=== PATIENT | male | born 1940 | race Caucasian/White ===

== ENCOUNTER 2017-04-26 12:20 | Outpatient (CLI) ==
[2014-11-04 10:34] VITALS: BMI 23.6
--- NOTE | 2017-04-26 13:08 | DI ---
EXAM: Views of the left femur HISTORY: Fall TECHNIQUE: AP lateral views of the left femur were obtained. FINDINGS: No acute fractures are seen. There is anatomic alignment. The femoral head is seen in n ormal position. The femoral neck appears intact. IMPRESSION: No acute fracture dislocation seen within the left femur.
--- NOTE | 2017-04-26 13:12 | DI ---
EXAM: Left knee four views HISTORY: Fall, left upper leg pain COMPARISON: None FINDINGS: No fracture or dislocation. Small tricompartmental osteophytes. The medial, lateral, and patellofemoral compartments are normal in height. No joint effusion. Atherosclerotic vascular calc ification. IMPERSSION: 1. No fracture or dislocation. 2. Mild tricompartmental osteoarthritis.
== END 2017-04-26 12:21 | disposition home or self-care (01) ==
LOC: RAD 12:20
PROVIDERS: ATTEND Internal Medicine
DX: M79.605 Pain in left leg (principal)

== ENCOUNTER 2022-05-06 10:18 | Observation (INO) ==
[2022-05-06] MEDS ORDERED: ZOFRAN 4 MG/2 ML IVP ONE (10:33)
--- NOTE | 2022-05-06 10:38 | ED.PDOC ---
General <CLINT VIDALES MD - Last Filed: 05/06/22 18:05> ED Provider: Dr. CLINT VIDALES MD Chief Complaint: Nausea/Vomiting Stated Complaint: mild off and on abdominal cramps today w/ body aches, no injury, no fever, no cough, no emesis, hx covid vaccine and htn, no dm or mi Time Seen by Provider: 05/06/22 10:19 Mode of Arrival: Wheelchair Information Source: Patient Primary Care Provider: MANFRED DERAS Sepsis Protocol: For patient's 13 years and over: Temp is 96.8 and below OR 101 and greater Pulse >90 BPM Resp >20/minute Acutely Altered Mental Status Are patient's symptoms suggestive of a new infection, such as: -Pneumonia -Skin, Soft Tissue -Endocarditis -UTI -Bone, Joint Infection -Implantable Device -Acute Abdominal Infection -Wound Infection -Meningitis -Blood Stream Catheter Infection -Unknown <POOL ZAZUETA MD - Last Filed: 05/07/22 08:57> Nursing and Triage Documentation Reviewed and Agree: Yes Does patient meet sepsis criteria?: No System Inflammatory Response Syndrome: Not Applicable Review of Systems <CLINT VIDALES MD - Last Filed: 05/06/22 18:05> Review Of Systems Constitutional: Reports Malaise; Denies Fever Eyes: Denies Vision change Ears, Nose, Mouth, Throat: Denies Throat pain Respiratory: Denies Cough or Short of air Cardiac: Denies Chest pain GI: Reports Abdominal pain and Nausea; Denies Vomiting : Denies Dysuria Musculoskeletal: Denies Neck pain Skin: Denies Rash Neurological: Denies Cognitive dysfunction Endocrine: Reports Other <POOL ZAZUETA MD - Last Filed: 05/07/22 08:57> Review Of Systems All Other Systems: Reviewed and Negative PFSH <CLINT VIDALES MD - Last Filed: 05/06/22 18:05> Medical History (Updated 05/07/22 @ 15:05 by MARTINE MÉNDEZ, ELADIO) Arthritis Depression Elevated cholesterol Gastroesophageal reflux disease Hyperlipidemia Hypertension Pain managed using patient-controlled analgesia ([employer]NICIAN) Family History Mother No problems noted. Other Stroke Social History (Updated 05/07/22 @ 14:22 by MARTINE MÉNDEZ, RN) Smokeless tobacco user: chewing tobacco Substance use type: does not use Surgical History back surgery History of ear, nose, and throat (ENT) surgery History of musculoskeletal system surgery Physical Exam <CLINT VIDALES MD - Last Filed: 05/06/22 18:05> Physical Exam Appearance: Reports Ill-appearing Ill-appearing: Mild Pain Distress: None Eyes: Reports ISABELLA, EOMI and Conjunctiva clear ENT: Reports Oropharynx normal Neck: Supple Respiratory: Reports Airway patent, Breath sounds clear and Breath sounds equal Cardiovascular: Reports RRR GI/: Reports Soft and Tender (no rebound) Musculoskeletal: Reports ROM intact Skin: Reports Warm and Dry Neurological: Reports Alert and Oriented Psychiatric: Reports Affect appropriate <POOL ZAZUETA MD - Last Filed: 05/07/22 08:57> Case Discussed Physician Notified: Dr. Silveira @ [facility], accepted but Lana gutierrez stated no be Time of Notification: 23:00 Physician Notified: Dr Deras Time of Notification: 08:50 (will come evaluate patient and decide if he can admit ) Endorsed To/Discussed With: Vj Time of Discussion: 08:57 <POOL ZAZUETA MD - Last Filed: 05/07/22 08:57> Critical Care Note Total Critical Care Time (mins): 30 Comments: multiple hospitals called with no beds available. Course <CLINT VIDALES MD - Last Filed: 05/06/22 18:05> Course Hematology/Chemistry: 05/08/22 05:35 05/08/22 05:35 Orders, Labs, Meds: Lab Review 05/06/22 05/06/22 05/06/22 10:33 10:33 10:33 WBC 8.09 RBC 5.07 Hgb 14.8 Hct 43.6 MCV 86.0 MCH 29.2 MCHC 33.9 RDW Coeff of Elias 13.2 Plt Count 167 Immature Gran % (Auto) 0.2 Neut % (Auto) 90.3 H Lymph % (Auto) 2.5 L [place] % (Auto) 6.6 Eos % (Auto) 0.0 Baso % (Auto) 0.4 Neut # (Auto) 7.3 H Lymph # (Auto) 0.2 L [place] # (Auto) 0.5 Eos # (Auto) 0.0 Baso # (Auto) 0.0 Immature Gran # (Auto) 0.0 Puncture Site Base Excess O2 Saturation ABG pH ABG pCO2 ABG pO2 ABG HCO3 ABG Total CO2 [place] Test Hemoglobin Oxyhemoglobin Carboxyhemoglobin Total Hemoglobin FiO2 % Sodium 136.4 Potassium 3.71 Chloride 102.1 Carbon Dioxide 24.6 Anion Gap 13.41 BUN 10.3 Creatinine 0.67 Estimated GFR (MDRD) 113.00 BUN/Creatinine Ratio 15.37 Glucose 147.8 H Lactic Acid 0.95 Calcium 8.81 Total Bilirubin 2.61 H AST 158.2 H ALT 124.5 H Alkaline Phosphatase 295.4 H Troponin I < 0.012 Total Protein 7.93 Albumin 4.39 Globulin 3.54 Albumin/Globulin Ratio 1.24 Lipase 7910.6 H Urine Color Urine Clarity Urine pH Ur Specific [place] Urine Protein Urine Glucose (UA) Urine Ketones Urine Blood Urine Nitrite Urine Bilirubin Urine Urobilinogen Ur Leukocyte Esterase Urine Microscopic RBC Urine Microscopic WBC Ur Squamous Epith Cells SARS CoV-2 RNA Rapid SHAMIKA 05/06/22 05/06/22 05/06/22 10:40 11:22 19:23 WBC RBC Hgb Hct MCV MCH MCHC RDW Coeff of Elias Plt Count Immature Gran % (Auto) Neut % (Auto) Lymph % (Auto) [place] % (Auto) Eos % (Auto) Baso % (Auto) Neut # (Auto) Lymph # (Auto) [place] # (Auto) Eos # (Auto) Baso # (Auto) Immature Gran # (Auto) Puncture Site R rad Base Excess 2.3 O2 Saturation 91.2 L ABG pH 7.44 ABG pCO2 39.0 ABG pO2 59.0 L* ABG HCO3 26.5 ABG Total CO2 27.7 H [place] Test Y Hemoglobin 1.1 Oxyhemoglobin 89.6 L Carboxyhemoglobin 1.6 H Total Hemoglobin 14.6 FiO2 % 21.0 Sodium Potassium Chloride Carbon Dioxide Anion Gap BUN Creatinine Estimated GFR (MDRD) BUN/Creatinine Ratio Glucose Lactic Acid Calcium Total Bilirubin AST ALT Alkaline Phosphatase Troponin I Total Protein Albumin Globulin Albumin/Globulin Ratio Lipase Urine Color Yellow Urine Clarity Clear Urine pH 7.0 Ur Specific [place] 1.015 Urine Protein Negative Urine Glucose (UA) Negative Urine Ketones 2+ H Urine Blood Trace-intact H Urine Nitrite Negative Urine Bilirubin Negative Urine Urobilinogen 0.2 Ur Leukocyte Esterase Negative Urine Microscopic RBC 2-5 Urine Microscopic WBC 0-2 Ur Squamous Epith Cells 0-2 SARS CoV-2 RNA Rapid SHAMIKA Positive H 05/06/22 05/06/22 05/07/22 20:19 20:19 06:59 WBC 13.19 H D 13.13 H RBC 4.72 4.64 L Hgb 14.0 13.7 L Hct 41.7 L 40.7 L MCV 88.3 87.7 MCH 29.7 29.5 MCHC 33.6 33.7 RDW Coeff of Elias 13.4 13.7 Plt Count 154 149 Immature Gran % (Auto) 0.4 0.5 Neut % (Auto) 93.1 H 86.8 H Lymph % (Auto) 2.2 L 4.2 L [place] % (Auto) 4.1 8.4 Eos % (Auto) 0.1 0.0 Baso % (Auto) 0.1 0.1 Neut # (Auto) 12.3 H 11.4 H Lymph # (Auto) 0.3 L 0.6 [place] # (Auto) 0.5 1.1 Eos # (Auto) 0.0 0.0 Baso # (Auto) 0.0 0.0 Immature Gran # (Auto) 0.1 0.1 Puncture Site Base Excess O2 Saturation ABG pH ABG pCO2 ABG pO2 ABG HCO3 ABG Total CO2 [place] Test Hemoglobin Oxyhemoglobin Carboxyhemoglobin Total Hemoglobin FiO2 % Sodium 139.4 Potassium 3.88 Chloride 103.3 Carbon Dioxide 26.4 Anion Gap 13.58 BUN 10.0 Creatinine 0.71 Estimated GFR (MDRD) 106.00 BUN/Creatinine Ratio 14.08 Glucose 192.7 H Lactic Acid Calcium 8.16 L Total Bilirubin 2.72 H AST 107.1 H D ALT 99.0 H Alkaline Phosphatase 233.1 H D Troponin I Total Protein 6.95 Albumin 3.83 Globulin 3.12 Albumin/Globulin Ratio 1.22 Lipase 5408.1 H Urine Color Urine Clarity Urine pH Ur Specific [place] Urine Protein Urine Glucose (UA) Urine Ketones Urine Blood Urine Nitrite Urine Bilirubin Urine Urobilinogen Ur Leukocyte Esterase Urine Microscopic RBC Urine Microscopic WBC Ur Squamous Epith Cells SARS CoV-2 RNA Rapid SHAMIKA 05/07/22 05/07/22 06:59 09:16 WBC RBC Hgb Hct MCV MCH MCHC RDW Coeff of Elias Plt Count Immature Gran % (Auto) Neut % (Auto) Lymph % (Auto) [place] % (Auto) Eos % (Auto) Baso % (Auto) Neut # (Auto) Lymph # (Auto) [place] # (Auto) Eos # (Auto) Baso # (Auto) Immature Gran # (Auto) Puncture Site R rad Base Excess 2.7 O2 Saturation 92.6 L ABG pH 7.41 ABG pCO2 43.0 ABG pO2 65.0 L ABG HCO3 27.3 ABG Total CO2 28.6 H [place] Test Y Hemoglobin 0.7 Oxyhemoglobin 91.2 L Carboxyhemoglobin 1.6 H Total Hemoglobin 12.6 FiO2 % 21.0 Sodium 140.6 Potassium 3.55 Chloride 104.1 Carbon Dioxide 27.4 Anion Gap 12.65 BUN 13.5 Creatinine 0.69 Estimated GFR (MDRD) 110.00 BUN/Creatinine Ratio 19.56 Glucose 117.4 H D Lactic Acid Calcium 7.98 L Total Bilirubin 1.17 D AST 84.9 H ALT 87.4 H Alkaline Phosphatase 215.6 H Troponin I Total Protein 6.97 Albumin 3.81 Globulin 3.16 Albumin/Globulin Ratio 1.20 Lipase 3465.8 H Urine Color Urine Clarity Urine pH Ur Specific [place] Urine Protein Urine Glucose (UA) Urine Ketones Urine Blood Urine Nitrite Urine Bilirubin Urine Urobilinogen Ur Leukocyte Esterase Urine Microscopic RBC Urine Microscopic WBC Ur Squamous Epith Cells SARS CoV-2 RNA Rapid SHAMIKA Orders Category Date Time Status PLACE PATIENT OBSERVATION .TO SCU (MONITORED BED) ADMISSION 05/07/22 12:34 Active ABG DRAW REQUEST Stat CARDIO 05/06/22 10:33 Completed ABG DRAW REQUEST Stat CARDIO 05/07/22 09:15 Completed EKG-(ED ONLY) Stat CARDIO 05/06/22 10:33 Completed METERED DOSE INHALATION Routine CARDIO 05/06/22 11:36 Completed NPO REMINDER: IMAGING ONCE CARE 05/07/22 07:02 Completed NPO REMINDER: IMAGING ONCE CARE 05/07/22 09:14 Completed NPO REMINDER: IMAGING ONCE CARE 05/07/22 09:24 Completed TELEMETRY MONITORING TELE CARE 05/07/22 12:35 Active OXYGEN [ED APPLY O2] .ONCE EMERGENCY 05/06/22 11:36 Active ABG COOX Stat LAB 05/06/22 11:22 Completed ABG COOX Stat LAB 05/07/22 09:16 Completed CBC W/ AUTO DIFF Stat LAB 05/06/22 10:33 Completed CBC W/ AUTO DIFF Stat LAB 05/06/22 20:19 Completed CBC W/ AUTO DIFF Stat LAB 05/07/22 06:59 Completed CMP [COMPREHENSIVE METABOLIC PANEL] Stat LAB 05/06/22 10:33 Completed CMP [COMPREHENSIVE METABOLIC PANEL] Stat LAB 05/06/22 20:19 Completed COMPREHENSIVE METABOLIC PANEL Stat LAB 05/07/22 06:59 Completed LACTIC ACID Stat LAB 05/06/22 10:33 Completed LIPASE Stat LAB 05/06/22 10:33 Completed LIPASE Stat LAB 05/06/22 20:19 Completed LIPASE Stat LAB 05/07/22 06:59 Completed SARS COV-2 RNA RAPID SHAMIKA Stat LAB 05/06/22 10:40 Completed TROPONIN I Stat LAB 05/06/22 10:33 Completed URINALYSIS C & S IF INDICATED Stat LAB 05/06/22 19:23 Completed Albuterol Inhaler(with Spacer) [Ventolin Hfa (Per Puff- MEDS 05/06/22 11:36 Discontinued with Spacer)] 2 puff IH ONCE ONE Methylprednisolone Sod Succ/Pf [Solu-Medrol 125 mg] MEDS 05/06/22 11:36 Discontinued 125 mg IVP ONCE STA Morphine Sulfate [Morphine 4 mg/ml Syringe] MEDS 05/06/22 19:24 Discontinued 4 mg IVP ONCE ONE Morphine Sulfate [Morphine 4 mg/ml Syringe] MEDS 05/07/22 02:43 Discontinued 4 mg IVP ONCE ONE Morphine Sulfate [Morphine 4 mg/ml Syringe] MEDS 05/06/22 22:34 Discontinued 4 mg IVP ONCE STA Nicotine 14 mg [Nicoderm 14 mg] MEDS 05/06/22 19:38 Discontinued 1 patch TD ONCE ONE Ondansetron HCl/Pf [Zofran 4 mg/2 ml] MEDS 05/06/22 10:33 Discontinued 4 mg IVP ONCE ONE Ondansetron HCl/Pf [Zofran 4 mg/2 ml] MEDS 05/06/22 19:24 Discontinued 4 mg IVP ONCE STA Pantoprazole Sodium [Protonix IV] MEDS 05/07/22 08:16 Discontinued 40 mg IVP ONCE ONE Piperacillin Sodium/Tazobactam [Zosyn 3.375 gm] 3.375 MEDS 05/06/22 20:45 Discontinued gm 0.9 % Sodium Chloride [Sodium Chloride 100Ml] 100 ml IV ONCE Piperacillin Sodium/Tazobactam [Zosyn 3.375 gm] 3.375 MEDS 05/07/22 02:43 Discontinued gm 0.9 % Sodium Chloride [Sodium Chloride 100Ml] 100 ml IV ONCE Ringers Lactated Solution [Lactated Ringers] 1,000 ml MEDS 05/07/22 07:52 Discontinued IV 250 mls/hr Ringers Lactated Solution [Lactated Ringers] 1,000 ml MEDS 05/07/22 07:53 Discontinued IV BOLUS Ropinirole HCl [Requip] MEDS 05/07/22 08:15 Discontinued 1 mg PO ONCE ONE Sodium Chloride 0.9% [Sodium Chloride] 1,000 ml MEDS 05/06/22 15:50 Discontinued IV BOLUS Sodium Chloride 0.9% [Sodium Chloride] 1,000 ml MEDS 05/06/22 19:23 Discontinued IV BOLUS CHEST, 1V AP ONLY Stat RADS 05/06/22 10:[address] ABDOMEN/PELVIS W CONTRAST Stat RADS 05/07/22 09:[address] ABDOMEN/PELVIS WO CONTRAST Stat RADS 05/06/22 10:33 Completed ULTRASOUND ABDOMEN, RT. UPPER QUAD [U/S ABDOMEN RT RADS 05/07/22 07:02 Completed UPPER QUAD] Stat Medications Generic Name Dose Route Start Last Admin Trade Name Freq PRN Reason Stop Dose Admin Amlodipine Besylate 5 mg 05/08/22 09:00 Amlodipine Besylate 5 Mg Tablet PO DAILY JAIME Aspirin 81 mg 05/08/22 08:30 Aspirin 81 Mg Tablet. PO DAILYWM JAIME Clonidine 0.1 mg 05/07/22 14:54 05/07/22 15:44 Clonidine Hcl 0.1 Mg Tablet PO 0.1 mg Q4H PRN Administration SYSTOLIC BP > 160 Enoxaparin Sodium 40 mg 05/07/22 13:30 05/07/22 14:26 Enoxaparin Sodium 40 Mg/0.4 Ml Syr SUBCUT 40 mg DAILY JAIME Administration Sodium Chloride 1,000 mls @ 75 mls/hr 05/07/22 13:00 05/08/22 04:41 Sodium Chloride IV 75 mls/hr .[id number] JAIME Administration Piperacillin Sod/Tazobactam 50 mls @ 75 mls/hr 05/07/22 18:00 05/08/22 05:43 Sod 3.375 gm/ Sodium Chloride IV 05/10/22 17:59 75 mls/hr Q6HR JAIME Administration Morphine Sulfate 15 mg 05/07/22 15:00 05/07/22 21:32 Morphine Sulfate 15 Mg Tablet PO 15 mg TID JAIME Administration Olmesartan 20 mg 05/08/22 09:00 Olmesartan Medoxomil 20 Mg Tablet PO DAILY JAIME Ondansetron HCl 4 mg 05/07/22 12:59 Ondansetron Hcl/Pf 4 Mg/2 Ml Sdv IVP Q6H PRN Nausea / Vomiting Pravastatin Sodium 20 mg 05/08/22 09:00 Pravastatin Sodium 20 Mg Tablet PO DAILY JAIME Ropinirole HCl 1 mg 05/07/22 21:00 05/07/22 21:32 Ropinirole Hcl 1 Mg Tablet PO 1 mg BEDTIME JAIME Administration Discontinued Medications Generic Name Dose Route Start Last Admin Trade Name Freq PRN Reason Stop Dose Admin Albuterol Sulfate 2 puff 05/06/22 11:36 05/06/22 11:50 Albuterol Sulfate (Ventolin Hfa) 18 Gm 1 Puff With Spacer IH 05/06/22 11:37 2 puff ONCE ONE Administration Sodium Chloride 1,000 mls @ 1,000 mls/hr 05/06/22 15:50 05/06/22 19:32 Sodium Chloride IV 05/06/22 16:49 1,000 mls/hr BOLUS STA Administration Sodium Chloride 1,000 mls @ 1,000 mls/hr 05/06/22 19:23 05/06/22 22:40 Sodium Chloride IV 05/06/22 20:22 1,000 mls/hr BOLUS STA Administration Piperacillin Sod/Tazobactam 100 mls @ 100 mls/hr 05/06/22 20:45 05/06/22 21:17 Sod 3.375 gm/ Sodium Chloride IV 05/06/22 21:44 100 mls/hr ONCE ONE Administration Piperacillin Sod/Tazobactam 100 mls @ 100 mls/hr 05/07/22 02:43 05/07/22 03:05 Sod 3.375 gm/ Sodium Chloride IV 05/07/22 03:42 100 mls/hr ONCE ONE Administration Lactated Ringer's 1,000 mls @ 250 mls/hr 05/07/22 07:52 05/07/22 09:55 Lactated Ringers IV 05/07/22 11:51 250 mls/hr .Q4H STA Administration Lactated Ringer's 1,000 mls @ 1,000 mls/hr 05/07/22 07:53 05/07/22 08:43 Lactated Ringers IV 05/07/22 08:52 1,000 mls/hr BOLUS STA Administration Piperacillin Sod/Tazobactam 100 mls @ 100 mls/hr 05/07/22 18:00 Sod 3.375 gm/ Sodium Chloride IV 05/10/22 17:59 Q6HR JAIME Methylprednisolone Sodium Succinate 125 mg 05/06/22 11:36 05/06/22 11:42 Methylprednisolone Sod Succ/Pf 125 Mg/2 Ml Vial IVP 05/06/22 11:37 125 mg ONCE STA Administration Morphine Sulfate 4 mg 05/06/22 19:24 05/06/22 19:31 Morphine Sulfate 4 Mg/Ml Syringe IVP 05/06/22 19:25 4 mg ONCE ONE Administration Morphine Sulfate 4 mg 05/06/22 22:34 05/06/22 22:39 Morphine Sulfate 4 Mg/Ml Syringe IVP 05/06/22 22:35 4 mg ONCE STA Administration Morphine Sulfate 4 mg 05/07/22 02:43 05/07/22 03:06 Morphine Sulfate 4 Mg/Ml Syringe IVP 05/07/22 02:44 4 mg ONCE ONE Administration Nicotine 1 patch 05/06/22 19:38 05/06/22 19:56 Nicotine 14 Mg Patch.Td24 TD 05/06/22 19:39 1 patch ONCE ONE Administration Ondansetron HCl 4 mg 05/06/22 10:33 05/06/22 10:45 Ondansetron Hcl/Pf 4 Mg/2 Ml Sdv IVP 05/06/22 10:34 4 mg ONCE ONE Administration Ondansetron HCl 4 mg 05/06/22 19:24 05/06/22 19:31 Ondansetron Hcl/Pf 4 Mg/2 Ml Sdv IVP 05/06/22 19:25 4 mg ONCE STA Administration Pantoprazole Sodium 40 mg 05/07/22 08:16 05/07/22 08:43 Pantoprazole Sodium 40 Mg Vial IVP 05/07/22 08:17 40 mg ONCE ONE Administration Ropinirole HCl 1 mg 05/07/22 08:15 05/07/22 08:42 Ropinirole Hcl 1 Mg Tablet PO 05/07/22 08:16 1 mg ONCE ONE Administration Vital Signs: Temp Pulse Resp BP Pulse Ox 05/07/22 03:02 98.2 F 82 16 122/71 93 L 05/06/22 22:30 97.9 F 80 14 131/76 93 L 05/06/22 10:19 97.9 F 97 H 18 166/84 H 93 L <POOL ZAZUETA MD - Last Filed: 05/07/22 08:57> Course Orders, Labs, Meds: Lab Review 05/06/22 05/06/22 05/06/22 10:33 10:33 10:33 WBC 8.09 RBC 5.07 Hgb 14.8 Hct 43.6 MCV 86.0 MCH 29.2 MCHC 33.9 RDW Coeff of Elias 13.2 Plt Count 167 Immature Gran % (Auto) 0.2 Neut % (Auto) 90.3 H Lymph % (Auto) 2.5 L [place] % (Auto) 6.6 Eos % (Auto) 0.0 Baso % (Auto) 0.4 Neut # (Auto) 7.3 H Lymph # (Auto) 0.2 L [place] # (Auto) 0.5 Eos # (Auto) 0.0 Baso # (Auto) 0.0 Immature Gran # (Auto) 0.0 Puncture Site Base Excess O2 Saturation ABG pH ABG pCO2 ABG pO2 ABG HCO3 ABG Total CO2 [place] Test Hemoglobin Oxyhemoglobin Carboxyhemoglobin Total Hemoglobin FiO2 % Sodium 136.4 Potassium 3.71 Chloride 102.1 Carbon Dioxide 24.6 Anion Gap 13.41 BUN 10.3 Creatinine 0.67 Estimated GFR (MDRD) 113.00 BUN/Creatinine Ratio 15.37 Glucose 147.8 H Lactic Acid 0.95 Calcium 8.81 Total Bilirubin 2.61 H AST 158.2 H ALT 124.5 H Alkaline Phosphatase 295.4 H Troponin I < 0.012 Total Protein 7.93 Albumin 4.39 Globulin 3.54 Albumin/Globulin Ratio 1.24 Lipase 7910.6 H Urine Color Urine Clarity Urine pH Ur Specific [place] Urine Protein Urine Glucose (UA) Urine Ketones Urine Blood Urine Nitrite Urine Bilirubin Urine Urobilinogen Ur Leukocyte Esterase Urine Microscopic RBC Urine Microscopic WBC Ur Squamous Epith Cells SARS CoV-2 RNA Rapid SHAMIKA 05/06/22 05/06/22 05/06/22 10:40 11:22 19:23 WBC RBC Hgb Hct MCV MCH MCHC RDW Coeff of Elias Plt Count Immature Gran % (Auto) Neut % (Auto) Lymph % (Auto) [place] % (Auto) Eos % (Auto) Baso % (Auto) Neut # (Auto) Lymph # (Auto) [place] # (Auto) Eos # (Auto) Baso # (Auto) Immature Gran # (Auto) Puncture Site R rad Base Excess 2.3 O2 Saturation 91.2 L ABG pH 7.44 ABG pCO2 39.0 ABG pO2 59.0 L* ABG HCO3 26.5 ABG Total CO2 27.7 H [place] Test Y Hemoglobin 1.1 Oxyhemoglobin 89.6 L Carboxyhemoglobin 1.6 H Total Hemoglobin 14.6 FiO2 % 21.0 Sodium Potassium Chloride Carbon Dioxide Anion Gap BUN Creatinine Estimated GFR (MDRD) BUN/Creatinine Ratio Glucose Lactic Acid Calcium Total Bilirubin AST ALT Alkaline Phosphatase Troponin I Total Protein Albumin Globulin Albumin/Globulin Ratio Lipase Urine Color Yellow Urine Clarity Clear Urine pH 7.0 Ur Specific [place] 1.015 Urine Protein Negative Urine Glucose (UA) Negative Urine Ketones 2+ H Urine Blood Trace-intact H Urine Nitrite Negative Urine Bilirubin Negative Urine Urobilinogen 0.2 Ur Leukocyte Esterase Negative Urine Microscopic RBC 2-5 Urine Microscopic WBC 0-2 Ur Squamous Epith Cells 0-2 SARS CoV-2 RNA Rapid SHAMIKA Positive H 05/06/22 05/06/22 05/07/22 20:19 20:19 06:59 WBC 13.19 H D 13.13 H RBC 4.72 4.64 L Hgb 14.0 13.7 L Hct 41.7 L 40.7 L MCV 88.3 87.7 MCH 29.7 29.5 MCHC 33.6 33.7 RDW Coeff of Elias 13.4 13.7 Plt Count 154 149 Immature Gran % (Auto) 0.4 0.5 Neut % (Auto) 93.1 H 86.8 H Lymph % (Auto) 2.2 L 4.2 L [place] % (Auto) 4.1 8.4 Eos % (Auto) 0.1 0.0 Baso % (Auto) 0.1 0.1 Neut # (Auto) 12.3 H 11.4 H Lymph # (Auto) 0.3 L 0.6 [place] # (Auto) 0.5 1.1 Eos # (Auto) 0.0 0.0 Baso # (Auto) 0.0 0.0 Immature Gran # (Auto) 0.1 0.1 Puncture Site Base Excess O2 Saturation ABG pH ABG pCO2 ABG pO2 ABG HCO3 ABG Total CO2 [place] Test Hemoglobin Oxyhemoglobin Carboxyhemoglobin Total Hemoglobin FiO2 % Sodium 139.4 Potassium 3.88 Chloride 103.3 Carbon Dioxide 26.4 Anion Gap 13.58 BUN 10.0 Creatinine 0.71 Estimated GFR (MDRD) 106.00 BUN/Creatinine Ratio 14.08 Glucose 192.7 H Lactic Acid Calcium 8.16 L Total Bilirubin 2.72 H AST 107.1 H D ALT 99.0 H Alkaline Phosphatase 233.1 H D Troponin I Total Protein 6.95 Albumin 3.83 Globulin 3.12 Albumin/Globulin Ratio 1.22 Lipase 5408.1 H Urine Color Urine Clarity Urine pH Ur Specific [place] Urine Protein Urine Glucose (UA) Urine Ketones Urine Blood Urine Nitrite Urine Bilirubin Urine Urobilinogen Ur Leukocyte Esterase Urine Microscopic RBC Urine Microscopic WBC Ur Squamous Epith Cells SARS CoV-2 RNA Rapid SHAMIKA 05/07/22 05/07/22 06:59 09:16 WBC RBC Hgb Hct MCV MCH MCHC RDW Coeff of Elias Plt Count Immature Gran % (Auto) Neut % (Auto) Lymph % (Auto) [place] % (Auto) Eos % (Auto) Baso % (Auto) Neut # (Auto) Lymph # (Auto) [place] # (Auto) Eos # (Auto) Baso # (Auto) Immature Gran # (Auto) Puncture Site R rad Base Excess 2.7 O2 Saturation 92.6 L ABG pH 7.41 ABG pCO2 43.0 ABG pO2 65.0 L ABG HCO3 27.3 ABG Total CO2 28.6 H [place] Test Y Hemoglobin 0.7 Oxyhemoglobin 91.2 L Carboxyhemoglobin 1.6 H Total Hemoglobin 12.6 FiO2 % 21.0 Sodium 140.6 Potassium 3.55 Chloride 104.1 Carbon Dioxide 27.4 Anion Gap 12.65 BUN 13.5 Creatinine 0.69 Estimated GFR (MDRD) 110.00 BUN/Creatinine Ratio 19.56 Glucose 117.4 H D Lactic Acid Calcium 7.98 L Total Bilirubin 1.17 D AST 84.9 H ALT 87.4 H Alkaline Phosphatase 215.6 H Troponin I Total Protein 6.97 Albumin 3.81 Globulin 3.16 Albumin/Globulin Ratio 1.20 Lipase 3465.8 H Urine Color Urine Clarity Urine pH Ur Specific [place] Urine Protein Urine Glucose (UA) Urine Ketones Urine Blood Urine Nitrite Urine Bilirubin Urine Urobilinogen Ur Leukocyte Esterase Urine Microscopic RBC Urine Microscopic WBC Ur Squamous Epith Cells SARS CoV-2 RNA Rapid SHAMIKA Orders Category Date Time Status PLACE PATIENT OBSERVATION .TO SCU (MONITORED BED) ADMISSION 05/07/22 12:34 Active ABG DRAW REQUEST Stat CARDIO 05/06/22 10:33 Completed ABG DRAW REQUEST Stat CARDIO 05/07/22 09:15 Completed EKG-(ED ONLY) Stat CARDIO 05/06/22 10:33 Completed METERED DOSE INHALATION Routine CARDIO 05/06/22 11:36 Completed NPO REMINDER: IMAGING ONCE CARE 05/07/22 07:02 Completed NPO REMINDER: IMAGING ONCE CARE 05/07/22 09:14 Completed NPO REMINDER: IMAGING ONCE CARE 05/07/22 09:24 Completed TELEMETRY MONITORING TELE CARE 05/07/22 12:35 Active OXYGEN [ED APPLY O2] .ONCE EMERGENCY 05/06/22 11:36 Active ABG COOX Stat LAB 05/06/22 11:22 Completed ABG COOX Stat LAB 05/07/22 09:16 Completed CBC W/ AUTO DIFF Stat LAB 05/06/22 10:33 Completed CBC W/ AUTO DIFF Stat LAB 05/06/22 20:19 Completed CBC W/ AUTO DIFF Stat LAB 05/07/22 06:59 Completed CMP [COMPREHENSIVE METABOLIC PANEL] Stat LAB 05/06/22 10:33 Completed CMP [COMPREHENSIVE METABOLIC PANEL] Stat LAB 05/06/22 20:19 Completed COMPREHENSIVE METABOLIC PANEL Stat LAB 05/07/22 06:59 Completed LACTIC ACID Stat LAB 05/06/22 10:33 Completed LIPASE Stat LAB 05/06/22 10:33 Completed LIPASE Stat LAB 05/06/22 20:19 Completed LIPASE Stat LAB 05/07/22 06:59 Completed SARS COV-2 RNA RAPID SHAMIKA Stat LAB 05/06/22 10:40 Completed TROPONIN I Stat LAB 05/06/22 10:33 Completed URINALYSIS C & S IF INDICATED Stat LAB 05/06/22 19:23 Completed Albuterol Inhaler(with Spacer) [Ventolin Hfa (Per Puff- MEDS 05/06/22 11:36 Discontinued with Spacer)] 2 puff IH ONCE ONE Methylprednisolone Sod Succ/Pf [Solu-Medrol 125 mg] MEDS 05/06/22 11:36 Discontinued 125 mg IVP ONCE STA Morphine Sulfate [Morphine 4 mg/ml Syringe] MEDS 05/06/22 19:24 Discontinued 4 mg IVP ONCE ONE Morphine Sulfate [Morphine 4 mg/ml Syringe] MEDS 05/07/22 02:43 Discontinued 4 mg IVP ONCE ONE Morphine Sulfate [Morphine 4 mg/ml Syringe] MEDS 05/06/22 22:34 Discontinued 4 mg IVP ONCE STA Nicotine 14 mg [Nicoderm 14 mg] MEDS 05/06/22 19:38 Discontinued 1 patch TD ONCE ONE Ondansetron HCl/Pf [Zofran 4 mg/2 ml] MEDS 05/06/22 10:33 Discontinued 4 mg IVP ONCE ONE Ondansetron HCl/Pf [Zofran 4 mg/2 ml] MEDS 05/06/22 19:24 Discontinued 4 mg IVP ONCE STA Pantoprazole Sodium [Protonix IV] MEDS 05/07/22 08:16 Discontinued 40 mg IVP ONCE ONE Piperacillin Sodium/Tazobactam [Zosyn 3.375 gm] 3.375 MEDS 05/06/22 20:45 Discontinued gm 0.9 % Sodium Chloride [Sodium Chloride 100Ml] 100 ml IV ONCE Piperacillin Sodium/Tazobactam [Zosyn 3.375 gm] 3.375 MEDS 05/07/22 02:43 Discontinued gm 0.9 % Sodium Chloride [Sodium Chloride 100Ml] 100 ml IV ONCE Ringers Lactated Solution [Lactated Ringers] 1,000 ml MEDS 05/07/22 07:52 Discontinued IV 250 mls/hr Ringers Lactated Solution [Lactated Ringers] 1,000 ml MEDS 05/07/22 07:53 Discontinued IV BOLUS Ropinirole HCl [Requip] MEDS 05/07/22 08:15 Discontinued 1 mg PO ONCE ONE Sodium Chloride 0.9% [Sodium Chloride] 1,000 ml MEDS 05/06/22 15:50 Discontinued IV BOLUS Sodium Chloride 0.9% [Sodium Chloride] 1,000 ml MEDS 05/06/22 19:23 Discontinued IV BOLUS CHEST, 1V AP ONLY Stat RADS 05/06/22 10:[address] ABDOMEN/PELVIS W CONTRAST Stat RADS 05/07/22 09:[address] ABDOMEN/PELVIS WO CONTRAST Stat RADS 05/06/22 10:33 Completed ULTRASOUND ABDOMEN, RT. UPPER QUAD [U/S ABDOMEN RT RADS 05/07/22 07:02 Completed UPPER QUAD] Stat Medications Generic Name Dose Route Start Last Admin Trade Name Giles PRN Reason Stop Dose Admin Amlodipine Besylate 5 mg 05/08/22 09:00 Amlodipine Besylate 5 Mg Tablet PO DAILY JAIME Aspirin 81 mg 05/08/22 08:30 Aspirin 81 Mg Tablet.Dr PO DAILYWM JAIME Clonidine 0.1 mg 05/07/22 14:54 05/07/22 15:44 Clonidine Hcl 0.1 Mg Tablet PO 0.1 mg Q4H PRN Administration SYSTOLIC BP > 160 Enoxaparin Sodium 40 mg 05/07/22 13:30 05/07/22 14:26 Enoxaparin Sodium 40 Mg/0.4 Ml Syr SUBCUT 40 mg DAILY JAIME Administration Sodium Chloride 1,000 mls @ 75 mls/hr 05/07/22 13:00 05/08/22 04:41 Sodium Chloride IV 75 mls/hr .[id number] JAIME Administration Piperacillin Sod/Tazobactam 50 mls @ 75 mls/hr 05/07/22 18:00 05/08/22 05:43 Sod 3.375 gm/ Sodium Chloride IV 05/10/22 17:59 75 mls/hr Q6HR JAIME Administration Morphine Sulfate 15 mg 05/07/22 15:00 05/07/22 21:32 Morphine Sulfate 15 Mg Tablet PO 15 mg TID JAIME Administration Olmesartan 20 mg 05/08/22 09:00 Olmesartan Medoxomil 20 Mg Tablet PO DAILY JAIME Ondansetron HCl 4 mg 05/07/22 12:59 Ondansetron Hcl/Pf 4 Mg/2 Ml Sdv IVP Q6H PRN Nausea / Vomiting Pravastatin Sodium 20 mg 05/08/22 09:00 Pravastatin Sodium 20 Mg Tablet PO DAILY JAIME Ropinirole HCl 1 mg 05/07/22 21:00 05/07/22 21:32 Ropinirole Hcl 1 Mg Tablet PO 1 mg BEDTIME JAIME Administration Discontinued Medications Generic Name Dose Route Start Last Admin Trade Name Giles PRN Reason Stop Dose Admin Albuterol Sulfate 2 puff 05/06/22 11:36 05/06/22 11:50 Albuterol Sulfate (Ventolin Hfa) 18 Gm 1 Puff With Spacer IH 05/06/22 11:37 2 puff ONCE ONE Administration Sodium Chloride 1,000 mls @ 1,000 mls/hr 05/06/22 15:50 05/06/22 19:32 Sodium Chloride IV 05/06/22 16:49 1,000 mls/hr BOLUS STA Administration Sodium Chloride 1,000 mls @ 1,000 mls/hr 05/06/22 19:23 05/06/22 22:40 Sodium Chloride IV 05/06/22 20:22 1,000 mls/hr BOLUS STA Administration Piperacillin Sod/Tazobactam 100 mls @ 100 mls/hr 05/06/22 20:45 05/06/22 21:17 Sod 3.375 gm/ Sodium Chloride IV 05/06/22 21:44 100 mls/hr ONCE ONE Administration Piperacillin Sod/Tazobactam 100 mls @ 100 mls/hr 05/07/22 02:43 05/07/22 03:05 Sod 3.375 gm/ Sodium Chloride IV 05/07/22 03:42 100 mls/hr ONCE ONE Administration Lactated Ringer's 1,000 mls @ 250 mls/hr 05/07/22 07:52 05/07/22 09:55 Lactated Ringers IV 05/07/22 11:51 250 mls/hr .Q4H STA Administration Lactated Ringer's 1,000 mls @ 1,000 mls/hr 05/07/22 07:53 05/07/22 08:43 Lactated Ringers IV 05/07/22 08:52 1,000 mls/hr BOLUS STA Administration Piperacillin Sod/Tazobactam 100 mls @ 100 mls/hr 05/07/22 18:00 Sod 3.375 gm/ Sodium Chloride IV 05/10/22 17:59 Q6HR [facility] Methylprednisolone Sodium Succinate 125 mg 05/06/22 11:36 05/06/22 11:42 Methylprednisolone Sod Succ/Pf 125 Mg/2 Ml Vial IVP 05/06/22 11:37 125 mg ONCE STA Administration Morphine Sulfate 4 mg 05/06/22 19:24 05/06/22 19:31 Morphine Sulfate 4 Mg/Ml Syringe IVP 05/06/22 19:25 4 mg ONCE ONE Administration Morphine Sulfate 4 mg 05/06/22 22:34 05/06/22 22:39 Morphine Sulfate 4 Mg/Ml Syringe IVP 05/06/22 22:35 4 mg ONCE STA Administration Morphine Sulfate 4 mg 05/07/22 02:43 05/07/22 03:06 Morphine Sulfate 4 Mg/Ml Syringe IVP 05/07/22 02:44 4 mg ONCE ONE Administration Nicotine 1 patch 05/06/22 19:38 05/06/22 19:56 Nicotine 14 Mg Patch.Td24 TD 05/06/22 19:39 1 patch ONCE ONE Administration Ondansetron HCl 4 mg 05/06/22 10:33 05/06/22 10:45 Ondansetron Hcl/Pf 4 Mg/2 Ml Sdv IVP 05/06/22 10:34 4 mg ONCE ONE Administration Ondansetron HCl 4 mg 05/06/22 19:24 05/06/22 19:31 Ondansetron Hcl/Pf 4 Mg/2 Ml Sdv IVP 05/06/22 19:25 4 mg ONCE STA Administration Pantoprazole Sodium 40 mg 05/07/22 08:16 05/07/22 08:43 Pantoprazole Sodium 40 Mg Vial IVP 05/07/22 08:17 40 mg ONCE ONE Administration Ropinirole HCl 1 mg 05/07/22 08:15 05/07/22 08:42 Ropinirole Hcl 1 Mg Tablet PO 05/07/22 08:16 1 mg ONCE ONE Administration Vital Signs: Temp Pulse Resp BP Pulse Ox 05/07/22 03:02 98.2 F 82 16 122/71 93 L 05/06/22 22:30 97.9 F 80 14 131/76 93 L 05/06/22 10:19 97.9 F 97 H 18 166/84 H 93 L <DEENA HENRY MD - Last Filed: 05/08/22 06:42> Course Orders, Labs, Meds: Lab Review 05/06/22 05/06/22 05/06/22 10:33 10:33 10:33 WBC 8.09 RBC 5.07 Hgb 14.8 Hct 43.6 MCV 86.0 MCH 29.2 MCHC 33.9 RDW Coeff of Elias 13.2 Plt Count 167 Immature Gran % (Auto) 0.2 Neut % (Auto) 90.3 H Lymph % (Auto) 2.5 L [place] % (Auto) 6.6 Eos % (Auto) 0.0 Baso % (Auto) 0.4 Neut # (Auto) 7.3 H Lymph # (Auto) 0.2 L [place] # (Auto) 0.5 Eos # (Auto) 0.0 Baso # (Auto) 0.0 Immature Gran # (Auto) 0.0 Puncture Site Base Excess O2 Saturation ABG pH ABG pCO2 ABG pO2 ABG HCO3 ABG Total CO2 Anselmo Test Hemoglobin Oxyhemoglobin Carboxyhemoglobin Total Hemoglobin FiO2 % Sodium 136.4 Potassium 3.71 Chloride 102.1 Carbon Dioxide 24.6 Anion Gap 13.41 BUN 10.3 Creatinine 0.67 Estimated GFR (MDRD) 113.00 BUN/Creatinine Ratio 15.37 Glucose 147.8 H Lactic Acid 0.95 Calcium 8.81 Total Bilirubin 2.61 H AST 158.2 H ALT 124.5 H Alkaline Phosphatase 295.4 H Troponin I < 0.012 Total Protein 7.93 Albumin 4.39 Globulin 3.54 Albumin/Globulin Ratio 1.24 Lipase 7910.6 H Urine Color Urine Clarity Urine pH Ur Specific [place] Urine Protein Urine Glucose (UA) Urine Ketones Urine Blood Urine Nitrite Urine Bilirubin Urine Urobilinogen Ur Leukocyte Esterase Urine Microscopic RBC Urine Microscopic WBC Ur Squamous Epith Cells SARS CoV-2 RNA Rapid SHAMIKA 05/06/22 05/06/22 05/06/22 10:40 11:22 19:23 WBC RBC Hgb Hct MCV MCH MCHC RDW Coeff of Elias Plt Count Immature Gran % (Auto) Neut % (Auto) Lymph % (Auto) [place] % (Auto) Eos % (Auto) Baso % (Auto) Neut # (Auto) Lymph # (Auto) [place] # (Auto) Eos # (Auto) Baso # (Auto) Immature Gran # (Auto) Puncture Site R rad Base Excess 2.3 O2 Saturation 91.2 L ABG pH 7.44 ABG pCO2 39.0 ABG pO2 59.0 L* ABG HCO3 26.5 ABG Total CO2 27.7 H Anselmo Test Y Hemoglobin 1.1 Oxyhemoglobin 89.6 L Carboxyhemoglobin 1.6 H Total Hemoglobin 14.6 FiO2 % 21.0 Sodium Potassium Chloride Carbon Dioxide Anion Gap BUN Creatinine Estimated GFR (MDRD) BUN/Creatinine Ratio Glucose Lactic Acid Calcium Total Bilirubin AST ALT Alkaline Phosphatase Troponin I Total Protein Albumin Globulin Albumin/Globulin Ratio Lipase Urine Color Yellow Urine Clarity Clear Urine pH 7.0 Ur Specific [place] 1.015 Urine Protein Negative Urine Glucose (UA) Negative Urine Ketones 2+ H Urine Blood Trace-intact H Urine Nitrite Negative Urine Bilirubin Negative Urine Urobilinogen 0.2 Ur Leukocyte Esterase Negative Urine Microscopic RBC 2-5 Urine Microscopic WBC 0-2 Ur Squamous Epith Cells 0-2 SARS CoV-2 RNA Rapid SHAMIKA Positive H 05/06/22 05/06/22 05/07/22 20:19 20:19 06:59 WBC 13.19 H D 13.13 H RBC 4.72 4.64 L Hgb 14.0 13.7 L Hct 41.7 L 40.7 L MCV 88.3 87.7 MCH 29.7 29.5 MCHC 33.6 33.7 RDW Coeff of Elias 13.4 13.7 Plt Count 154 149 Immature Gran % (Auto) 0.4 0.5 Neut % (Auto) 93.1 H 86.8 H Lymph % (Auto) 2.2 L 4.2 L [place] % (Auto) 4.1 8.4 Eos % (Auto) 0.1 0.0 Baso % (Auto) 0.1 0.1 Neut # (Auto) 12.3 H 11.4 H Lymph # (Auto) 0.3 L 0.6 [place] # (Auto) 0.5 1.1 Eos # (Auto) 0.0 0.0 Baso # (Auto) 0.0 0.0 Immature Gran # (Auto) 0.1 0.1 Puncture Site Base Excess O2 Saturation ABG pH ABG pCO2 ABG pO2 ABG HCO3 ABG Total CO2 [place] Test Hemoglobin Oxyhemoglobin Carboxyhemoglobin Total Hemoglobin FiO2 % Sodium 139.4 Potassium 3.88 Chloride 103.3 Carbon Dioxide 26.4 Anion Gap 13.58 BUN 10.0 Creatinine 0.71 Estimated GFR (MDRD) 106.00 BUN/Creatinine Ratio 14.08 Glucose 192.7 H Lactic Acid Calcium 8.16 L Total Bilirubin 2.72 H AST 107.1 H D ALT 99.0 H Alkaline Phosphatase 233.1 H D Troponin I Total Protein 6.95 Albumin 3.83 Globulin 3.12 Albumin/Globulin Ratio 1.22 Lipase 5408.1 H Urine Color Urine Clarity Urine pH Ur Specific [place] Urine Protein Urine Glucose (UA) Urine Ketones Urine Blood Urine Nitrite Urine Bilirubin Urine Urobilinogen Ur Leukocyte Esterase Urine Microscopic RBC Urine Microscopic WBC Ur Squamous Epith Cells SARS CoV-2 RNA Rapid SHAMIKA 05/07/22 05/07/22 06:59 09:16 WBC RBC Hgb Hct MCV MCH MCHC RDW Coeff of Elias Plt Count Immature Gran % (Auto) Neut % (Auto) Lymph % (Auto) [place] % (Auto) Eos % (Auto) Baso % (Auto) Neut # (Auto) Lymph # (Auto) [place] # (Auto) Eos # (Auto) Baso # (Auto) Immature Gran # (Auto) Puncture Site R rad Base Excess 2.7 O2 Saturation 92.6 L ABG pH 7.41 ABG pCO2 43.0 ABG pO2 65.0 L ABG HCO3 27.3 ABG Total CO2 28.6 H [place]mo Test Y Hemoglobin 0.7 Oxyhemoglobin 91.2 L Carboxyhemoglobin 1.6 H Total Hemoglobin 12.6 FiO2 % 21.0 Sodium 140.6 Potassium 3.55 Chloride 104.1 Carbon Dioxide 27.4 Anion Gap 12.65 BUN 13.5 Creatinine 0.69 Estimated GFR (MDRD) 110.00 BUN/Creatinine Ratio 19.56 Glucose 117.4 H D Lactic Acid Calcium 7.98 L Total Bilirubin 1.17 D AST 84.9 H ALT 87.4 H Alkaline Phosphatase 215.6 H Troponin I Total Protein 6.97 Albumin 3.81 Globulin 3.16 Albumin/Globulin Ratio 1.20 Lipase 3465.8 H Urine Color Urine Clarity Urine pH Ur Specific [place] Urine Protein Urine Glucose (UA) Urine Ketones Urine Blood Urine Nitrite Urine Bilirubin Urine Urobilinogen Ur Leukocyte Esterase Urine Microscopic RBC Urine Microscopic WBC Ur Squamous Epith Cells SARS CoV-2 RNA Rapid SHAMIKA Orders Category Date Time Status PLACE PATIENT OBSERVATION .TO SCU (MONITORED BED) ADMISSION 05/07/22 12:34 Active ABG DRAW REQUEST Stat CARDIO 05/06/22 10:33 Completed ABG DRAW REQUEST Stat CARDIO 05/07/22 09:15 Completed EKG-(ED ONLY) Stat CARDIO 05/06/22 10:33 Completed METERED DOSE INHALATION Routine CARDIO 05/06/22 11:36 Completed NPO REMINDER: IMAGING ONCE CARE 05/07/22 07:02 Completed NPO REMINDER: IMAGING ONCE CARE 05/07/22 09:14 Completed NPO REMINDER: IMAGING ONCE CARE 05/07/22 09:24 Completed TELEMETRY MONITORING TELE CARE 05/07/22 12:35 Active OXYGEN [ED APPLY O2] .ONCE EMERGENCY 05/06/22 11:36 Active ABG COOX Stat LAB 05/06/22 11:22 Completed ABG COOX Stat LAB 05/07/22 09:16 Completed CBC W/ AUTO DIFF Stat LAB 05/06/22 10:33 Completed CBC W/ AUTO DIFF Stat LAB 05/06/22 20:19 Completed CBC W/ AUTO DIFF Stat LAB 05/07/22 06:59 Completed CMP [COMPREHENSIVE METABOLIC PANEL] Stat LAB 05/06/22 10:33 Completed CMP [COMPREHENSIVE METABOLIC PANEL] Stat LAB 05/06/22 20:19 Completed COMPREHENSIVE METABOLIC PANEL Stat LAB 05/07/22 06:59 Completed LACTIC ACID Stat LAB 05/06/22 10:33 Completed LIPASE Stat LAB 05/06/22 10:33 Completed LIPASE Stat LAB 05/06/22 20:19 Completed LIPASE Stat LAB 05/07/22 06:59 Completed SARS COV-2 RNA RAPID SHAMIKA Stat LAB 05/06/22 10:40 Completed TROPONIN I Stat LAB 05/06/22 10:33 Completed URINALYSIS C & S IF INDICATED Stat LAB 05/06/22 19:23 Completed Albuterol Inhaler(with Spacer) [Ventolin Hfa (Per Puff- MEDS 05/06/22 11:36 Discontinued with Spacer)] 2 puff IH ONCE ONE Methylprednisolone Sod Succ/Pf [Solu-Medrol 125 mg] MEDS 05/06/22 11:36 Discontinued 125 mg IVP ONCE STA Morphine Sulfate [Morphine 4 mg/ml Syringe] MEDS 05/06/22 19:24 Discontinued 4 mg IVP ONCE ONE Morphine Sulfate [Morphine 4 mg/ml Syringe] MEDS 05/07/22 02:43 Discontinued 4 mg IVP ONCE ONE Morphine Sulfate [Morphine 4 mg/ml Syringe] MEDS 05/06/22 22:34 Discontinued 4 mg IVP ONCE STA Nicotine 14 mg [Nicoderm 14 mg] MEDS 05/06/22 19:38 Discontinued 1 patch TD ONCE ONE Ondansetron HCl/Pf [Zofran 4 mg/2 ml] MEDS 05/06/22 10:33 Discontinued 4 mg IVP ONCE ONE Ondansetron HCl/Pf [Zofran 4 mg/2 ml] MEDS 05/06/22 19:24 Discontinued 4 mg IVP ONCE STA Pantoprazole Sodium [Protonix IV] MEDS 05/07/22 08:16 Discontinued 40 mg IVP ONCE ONE Piperacillin Sodium/Tazobactam [Zosyn 3.375 gm] 3.375 MEDS 05/06/22 20:45 Discontinued gm 0.9 % Sodium Chloride [Sodium Chloride 100Ml] 100 ml IV ONCE Piperacillin Sodium/Tazobactam [Zosyn 3.375 gm] 3.375 MEDS 05/07/22 02:43 Discontinued gm 0.9 % Sodium Chloride [Sodium Chloride 100Ml] 100 ml IV ONCE Ringers Lactated Solution [Lactated Ringers] 1,000 ml MEDS 05/07/22 07:52 Discontinued IV 250 mls/hr Ringers Lactated Solution [Lactated Ringers] 1,000 ml MEDS 05/07/22 07:53 Discontinued IV BOLUS Ropinirole HCl [Requip] MEDS 05/07/22 08:15 Discontinued 1 mg PO ONCE ONE Sodium Chloride 0.9% [Sodium Chloride] 1,000 ml MEDS 05/06/22 15:50 Discontinued IV BOLUS Sodium Chloride 0.9% [Sodium Chloride] 1,000 ml MEDS 05/06/22 19:23 Discontinued IV BOLUS CHEST, 1V AP ONLY Stat RADS 05/06/22 10:[address] ABDOMEN/PELVIS W CONTRAST Stat RADS 05/07/22 09:[address] ABDOMEN/PELVIS WO CONTRAST Stat RADS 05/06/22 10:33 Completed ULTRASOUND ABDOMEN, RT. UPPER QUAD [U/S ABDOMEN RT RADS 05/07/22 07:02 Completed UPPER QUAD] Stat Medications Generic Name Dose Route Start Last Admin Trade Name Freq PRN Reason Stop Dose Admin Amlodipine Besylate 5 mg 05/08/22 09:00 Amlodipine Besylate 5 Mg Tablet PO DAILY [facility] Aspirin 81 mg 05/08/22 08:30 Aspirin 81 Mg Tablet. PO DAILYWM [facility] Clonidine 0.1 mg 05/07/22 14:54 05/07/22 15:44 Clonidine Hcl 0.1 Mg Tablet PO 0.1 mg Q4H PRN Administration SYSTOLIC BP > 160 Enoxaparin Sodium 40 mg 05/07/22 13:30 05/07/22 14:26 Enoxaparin Sodium 40 Mg/0.4 Ml Syr SUBCUT 40 mg DAILY JAIME Administration Sodium Chloride 1,000 mls @ 75 mls/hr 05/07/22 13:00 05/08/22 04:41 Sodium Chloride IV 75 mls/hr .[id number] JAIME Administration Piperacillin Sod/Tazobactam 50 mls @ 75 mls/hr 05/07/22 18:00 05/08/22 05:43 Sod 3.375 gm/ Sodium Chloride IV 05/10/22 17:59 75 mls/hr Q6HR JAIME Administration Morphine Sulfate 15 mg 05/07/22 15:00 05/07/22 21:32 Morphine Sulfate 15 Mg Tablet PO 15 mg TID JAIME Administration Olmesartan 20 mg 05/08/22 09:00 Olmesartan Medoxomil 20 Mg Tablet PO DAILY JAIME Ondansetron HCl 4 mg 05/07/22 12:59 Ondansetron Hcl/Pf 4 Mg/2 Ml Sdv IVP Q6H PRN Nausea / Vomiting Pravastatin Sodium 20 mg 05/08/22 09:00 Pravastatin Sodium 20 Mg Tablet PO DAILY JAIME Ropinirole HCl 1 mg 05/07/22 21:00 05/07/22 21:32 Ropinirole Hcl 1 Mg Tablet PO 1 mg BEDTIME JAIME Administration Discontinued Medications Generic Name Dose Route Start Last Admin Trade Name Freq PRN Reason Stop Dose Admin Albuterol Sulfate 2 puff 05/06/22 11:36 05/06/22 11:50 Albuterol Sulfate (Ventolin Hfa) 18 Gm 1 Puff With Spacer IH 05/06/22 11:37 2 puff ONCE ONE Administration Sodium Chloride 1,000 mls @ 1,000 mls/hr 05/06/22 15:50 05/06/22 19:32 Sodium Chloride IV 05/06/22 16:49 1,000 mls/hr BOLUS STA Administration Sodium Chloride 1,000 mls @ 1,000 mls/hr 05/06/22 19:23 05/06/22 22:40 Sodium Chloride IV 05/06/22 20:22 1,000 mls/hr BOLUS STA Administration Piperacillin Sod/Tazobactam 100 mls @ 100 mls/hr 05/06/22 20:45 05/06/22 21:17 Sod 3.375 gm/ Sodium Chloride IV 05/06/22 21:44 100 mls/hr ONCE ONE Administration Piperacillin Sod/Tazobactam 100 mls @ 100 mls/hr 05/07/22 02:43 05/07/22 03:05 Sod 3.375 gm/ Sodium Chloride IV 05/07/22 03:42 100 mls/hr ONCE ONE Administration Lactated Ringer's 1,000 mls @ 250 mls/hr 05/07/22 07:52 05/07/22 09:55 Lactated Ringers IV 05/07/22 11:51 250 mls/hr .Q4H STA Administration Lactated Ringer's 1,000 mls @ 1,000 mls/hr 05/07/22 07:53 05/07/22 08:43 Lactated Ringers IV 05/07/22 08:52 1,000 mls/hr BOLUS STA Administration Piperacillin Sod/Tazobactam 100 mls @ 100 mls/hr 05/07/22 18:00 Sod 3.375 gm/ Sodium Chloride IV 05/10/22 17:59 Q6HR JAIME Methylprednisolone Sodium Succinate 125 mg 05/06/22 11:36 05/06/22 11:42 Methylprednisolone Sod Succ/Pf 125 Mg/2 Ml Vial IVP 05/06/22 11:37 125 mg ONCE STA Administration Morphine Sulfate 4 mg 05/06/22 19:24 05/06/22 19:31 Morphine Sulfate 4 Mg/Ml Syringe IVP 05/06/22 19:25 4 mg ONCE ONE Administration Morphine Sulfate 4 mg 05/06/22 22:34 05/06/22 22:39 Morphine Sulfate 4 Mg/Ml Syringe IVP 05/06/22 22:35 4 mg ONCE STA Administration Morphine Sulfate 4 mg 05/07/22 02:43 05/07/22 03:06 Morphine Sulfate 4 Mg/Ml Syringe IVP 05/07/22 02:44 4 mg ONCE ONE Administration Nicotine 1 patch 05/06/22 19:38 05/06/22 19:56 Nicotine 14 Mg Patch.Td24 TD 05/06/22 19:39 1 patch ONCE ONE Administration Ondansetron HCl 4 mg 05/06/22 10:33 05/06/22 10:45 Ondansetron Hcl/Pf 4 Mg/2 Ml Sdv IVP 05/06/22 10:34 4 mg ONCE ONE Administration Ondansetron HCl 4 mg 05/06/22 19:24 05/06/22 19:31 Ondansetron Hcl/Pf 4 Mg/2 Ml Sdv IVP 05/06/22 19:25 4 mg ONCE STA Administration Pantoprazole Sodium 40 mg 05/07/22 08:16 05/07/22 08:43 Pantoprazole Sodium 40 Mg Vial IVP 05/07/22 08:17 40 mg ONCE ONE Administration Ropinirole HCl 1 mg 05/07/22 08:15 05/07/22 08:42 Ropinirole Hcl 1 Mg Tablet PO 05/07/22 08:16 1 mg ONCE ONE Administration Vital Signs: Temp Pulse Resp BP Pulse Ox 05/07/22 03:02 98.2 F 82 16 122/71 93 L 05/06/22 22:30 97.9 F 80 14 131/76 93 L 05/06/22 10:19 97.9 F 97 H 18 166/84 H 93 L Discharge Plan Discharge Patient Disposition: ADMITTED INPATIENT Discharge Problem: Gallstones, Pancreatitis Did you review [place] [employer]OR FRAMER?: No ED Provider: DEENA HENRY Condition: Fair <CLINT VIDALES MD - Last Filed: 05/06/22 18:05> Physician Progress Note: care to Dr Zazueta at 19:00 [] <DEENA HENRY MD - Last Filed: 05/08/22 06:42> Physician Progress Note: care to Dr Zazueta at 19:00 [Patient with clinical gallstone pancreatitis. Better over his time in ED. No beds available elsewhere so he could have an ERCP. Dr. Deras would like him admitted here under the hospitalist program. He wanted another CT done, since i mproving, OK to admit here. See orders.]
[2022-05-06 10:48] LABS: BASOPHILS % (AUTO) 0.4 % (0.0-3.0); HEMATOCRIT 43.6 % (42.0-52.0); HEMOGLOBIN 14.8 g/dl (14.0-18.0); IMMATURE GRANULOCYTE % (AUTO) 0.2 % (0.0-5.0); LYMPHOCYTES # (AUTO) 0.2 K/uL (0.60-3.4); LYMPHOCYTES % (AUTO) 2.5 (10.0-50.0); MEAN CORPUSCULAR HEMOGLOBIN 29.2 pg (27.0-31.0); MEAN CORPUSCULAR HGB CONC 33.9 (31.8-35.4); MONOCYTES # (AUTO) 0.5 K/uL (0.4-2.0); MONOCYTES % (AUTO) 6.6 (0-10); NEUTROPHILS # (AUTO) 7.3 K/ul (2.0-6.9); NEUTROPHILS % (AUTO) 90.3 % (42.2-75.2); PLATELET COUNT 167 10^3/uL (140-440); RDW COEFFICIENT OF VARIATION 13.2 % (11.6-14.8); RED BLOOD COUNT 5.07 10^6/ul (4.70-6.10); WHITE BLOOD COUNT 8.09 K/ul (4.2-10.2)
[2022-05-06 11:02] LABS: ALANINE AMINOTRANSFERASE 124.5 U/L (0-50); ALBUMIN 4.39 g/dL (3.5-5.0); ALKALINE PHOSPHATASE 295.4 U/L (56-119); ASPARTATE AMINO TRANSFERASE 158.2 U/L (17-59); BILIRUBIN,TOTAL 2.61 mg/dL (0.2-1.3); BLOOD UREA NITROGEN 10.3 mg/dL (9-20); CALCIUM 8.81 mg/dL (8.4-10.2); CARBON DIOXIDE 24.6 mmol/L (22-30.0); CHLORIDE 102.1 mmol/L (98-107); CREATININE 0.67 mg/dL (0.60-1.10); GLUCOSE 147.8 mg/dL (74-106); POTASSIUM 3.71 mmol/L (3.5-5.1); SODIUM 136.4 mmol/L (134.5-145); TOTAL PROTEIN 7.93 g/dL (6.3-8.2)
[2022-05-06 11:15] LABS: TROPONIN I < 0.012 ng/ml (0.0000-0.120)
[2022-05-06 11:30] LABS: ABG O2 HGB 89.6 % (95-100); ABG PH 7.44 (7.35-7.45); BEecf 2.3 (-2.0-3.0); COHb 1.6 (0.5-1.5); HCO3 26.5 (21-28); MetHb 1.1 (0-1.5); TCO2 27.7 (19-24); sO2 91.2 % (94-98); tHb 14.6 g/dl (11.7-17.4)
[2022-05-06 11:35] LABS: LIPASE 7910.6 U/L (23-300)
[2022-05-06] MEDS ORDERED: SOLU-MEDROL 125 MG IVP STA (11:36)
[2022-05-06] MEDS ORDERED: VENTOLIN HFA (PER PUFF-WITH SPACER) IH ONE (11:36)
--- NOTE | 2022-05-06 12:24 | DI ---
EXAM: Single frontal view of the chest HISTORY: Weakness. COMPARISON: None FINDINGS: Cardiomediastinal silhouette is unremarkable with atherosclerotic disease. There is no pne umothorax. There is bilateral lower lobe linear atelectasis. The osseous structures demonstrate deg enerative disease with postoperative changes in the right shoulder. IMPRESSION: No acute abnormality with bibasilar atelectasis.
--- NOTE | 2022-05-06 12:33 | CT ---
EXAM: CT abdomen pelvis without contrast HISTORY: Abdominal pain COMPARISON: None TECHNIQUE: Serial axial images of the abdomen pelvis were performed from the lung bases through the inferior pelvis without contrast. These were viewed in multiple planes. FINDINGS: The lungs demonstrate atelectasis with small airways thickening. Evaluation is limited due to lack of contrast. The liver is unremarkable. The gallbladder demonstra caleb layering sludge. Adrenal glands are normal. There is a large low attenuation 5.8 cm cyst with n onobstructing stones in largest measuring 0.4 cm. The left kidney demonstrates an exophytic cyst grace suring 7 cm. There is a nonobstructing stone inferior pole of the left kidney. Spleen is unremarkab le. Pancreas is unremarkable. There is peripancreatic inflammatory stranding. There is a small hiatal hernia. The stomach is minimally distended. Small bowel in the abdomen pelv is is unremarkable. The colon demonstrates diverticulosis. Urinary bladder is distended. Prostate is unremarkable. There is no free air or free fluid. There is severe atherosclerotic disease. Ther e is degenerative disease with scattered postoperative changes with multilevel posterior fusion hardw are with no evidence of hardware fracture or loosening. IMPRESSION: 1. Findings consistent with pancreatitis. 2. Bilateral exophytic renal cysts with nonobstructing renal stones. 3. Layering gall sludge versus stones. 4. Diverticulosis without diverticulitis. 5. 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 All CT scans are performed using dose optimization techniques as appropriate to the performed exam an d include at least one of the following: Automated exposure control, adjustment of the mA and/or kV according t o size, and the use of iterative reconstruction technique.
[2022-05-06] MEDS ORDERED: SODIUM CHLORIDE 1,000 ML IV STA ×2 (15:50→19:23)
[2022-05-06] MEDS ORDERED: ZOFRAN 4 MG/2 ML IVP STA (19:24)
[2022-05-06] MEDS ORDERED: MORPHINE 4 MG/ML SYRINGE IVP ONE (19:24)
[2022-05-06 19:30] LABS: BILIRUBIN,URINE Negative (NEGATIVE); CLARITY,URINE Clear (CLEAR); COLOR,URINE Yellow (YELLOW); GLUCOSE, URINE (UA) Negative (NEGATIVE); KETONES,URINE 2+ (NEGATIVE); LEUKOCYTE ESTERASE ,URINE Negative (NEGATIVE); NITRITE,URINE Negative (NEGATIVE); PROTEIN,URINE Negative (NEGATIVE); URINE, BLOOD Trace-intact (NEGATIVE); UROBILINOGEN,URINE 0.2 (0.2)
[2022-05-06] MEDS ORDERED: NICODERM 14 MG TD ONE (19:38)
[2022-05-06 19:41] LABS: SQUAMOUS EPITHELIAL CELL,UR 0-2 (0-5); URINE WBC, MICROSCOPIC 0-2 (0-2)
[2022-05-06 20:31] LABS: BASOPHILS % (AUTO) 0.1 % (0.0-3.0); EOSINOPHILS % (AUTO) 0.1 % (0.0-7.0); HEMATOCRIT 41.7 % (42.0-52.0); IMMATURE GRANULOCYTE # (AUTO) 0.1 (0.0-1.0); IMMATURE GRANULOCYTE % (AUTO) 0.4 % (0.0-5.0); LYMPHOCYTES # (AUTO) 0.3 K/uL (0.60-3.4); LYMPHOCYTES % (AUTO) 2.2 (10.0-50.0); MEAN CORPUSCULAR HEMOGLOBIN 29.7 pg (27.0-31.0); MEAN CORPUSCULAR HGB CONC 33.6 (31.8-35.4); MEAN CORPUSCULAR VOLUME 88.3 fl (80.0-94.0); MONOCYTES # (AUTO) 0.5 K/uL (0.4-2.0); MONOCYTES % (AUTO) 4.1 (0-10); NEUTROPHILS # (AUTO) 12.3 K/ul (2.0-6.9); NEUTROPHILS % (AUTO) 93.1 % (42.2-75.2); PLATELET COUNT 154 10^3/uL (140-440); RDW COEFFICIENT OF VARIATION 13.4 % (11.6-14.8); RED BLOOD COUNT 4.72 10^6/ul (4.70-6.10); WHITE BLOOD COUNT 13.19 K/ul (4.2-10.2)
[2022-05-06 20:43] LABS: ALBUMIN 3.83 g/dL (3.5-5.0); ALKALINE PHOSPHATASE 233.1 U/L (56-119); ASPARTATE AMINO TRANSFERASE 107.1 U/L (17-59); BILIRUBIN,TOTAL 2.72 mg/dL (0.2-1.3); CALCIUM 8.16 mg/dL (8.4-10.2); CARBON DIOXIDE 26.4 mmol/L (22-30.0); CHLORIDE 103.3 mmol/L (98-107); CREATININE 0.71 mg/dL (0.60-1.10); GLUCOSE 192.7 mg/dL (74-106); POTASSIUM 3.88 mmol/L (3.5-5.1); SODIUM 139.4 mmol/L (134.5-145); TOTAL PROTEIN 6.95 g/dL (6.3-8.2)
[2022-05-06] MEDS ORDERED: ZOSYN 3.375 GM 3.375 GM in SODIUM CHLORIDE 100ML 100 ML IV ONE (20:45)
[2022-05-06 21:00] LABS: LIPASE 5408.1 U/L (23-300)
[2022-05-06] MEDS ORDERED: MORPHINE SULFATE TAB PO STA (22:30)
[2022-05-06] MEDS ORDERED: MORPHINE 4 MG/ML SYRINGE IVP STA (22:34)
[2022-05-07] MEDS ORDERED: MORPHINE 4 MG/ML SYRINGE IVP ONE (02:43)
[2022-05-07] MEDS ORDERED: ZOSYN 3.375 GM 3.375 GM in SODIUM CHLORIDE 100ML 100 ML IV ONE (02:43)
[2022-05-07 07:04] LABS: BASOPHILS % (AUTO) 0.1 % (0.0-3.0); HEMATOCRIT 40.7 % (42.0-52.0); HEMOGLOBIN 13.7 g/dl (14.0-18.0); IMMATURE GRANULOCYTE # (AUTO) 0.1 (0.0-1.0); IMMATURE GRANULOCYTE % (AUTO) 0.5 % (0.0-5.0); LYMPHOCYTES # (AUTO) 0.6 K/uL (0.60-3.4); LYMPHOCYTES % (AUTO) 4.2 (10.0-50.0); MEAN CORPUSCULAR HEMOGLOBIN 29.5 pg (27.0-31.0); MEAN CORPUSCULAR HGB CONC 33.7 (31.8-35.4); MEAN CORPUSCULAR VOLUME 87.7 fl (80.0-94.0); MONOCYTES # (AUTO) 1.1 K/uL (0.4-2.0); MONOCYTES % (AUTO) 8.4 (0-10); NEUTROPHILS # (AUTO) 11.4 K/ul (2.0-6.9); NEUTROPHILS % (AUTO) 86.8 % (42.2-75.2); PLATELET COUNT 149 10^3/uL (140-440); RDW COEFFICIENT OF VARIATION 13.7 % (11.6-14.8); RED BLOOD COUNT 4.64 10^6/ul (4.70-6.10); WHITE BLOOD COUNT 13.13 K/ul (4.2-10.2)
[2022-05-07 07:28] LABS: ALANINE AMINOTRANSFERASE 87.4 U/L (0-50); ALBUMIN 3.81 g/dL (3.5-5.0); ALKALINE PHOSPHATASE 215.6 U/L (56-119); ASPARTATE AMINO TRANSFERASE 84.9 U/L (17-59); BILIRUBIN,TOTAL 1.17 mg/dL (0.2-1.3); BLOOD UREA NITROGEN 13.5 mg/dL (9-20); CALCIUM 7.98 mg/dL (8.4-10.2); CARBON DIOXIDE 27.4 mmol/L (22-30.0); CHLORIDE 104.1 mmol/L (98-107); CREATININE 0.69 mg/dL (0.60-1.10); GLUCOSE 117.4 mg/dL (74-106); POTASSIUM 3.55 mmol/L (3.5-5.1); SODIUM 140.6 mmol/L (134.5-145); TOTAL PROTEIN 6.97 g/dL (6.3-8.2)
[2022-05-07 07:41] LABS: LIPASE 3465.8 U/L (23-300)
[2022-05-07] MEDS ORDERED: LACTATED RINGERS 1,000 ML IV STA ×2 (07:52→07:53)
[2022-05-07] MEDS ORDERED: REQUIP PO ONE (08:15)
[2022-05-07] MEDS ORDERED: PROTONIX IV IVP ONE (08:16)
--- NOTE | 2022-05-07 08:25 | US ---
EXAM: Ultrasound abdomen limited. HISTORY: Pancreatitis. COMPARISON: CT earlier the same day. TECHNIQUE: Abdominal, real time with image documentation: limited (e.g., single organ, quadrant, fo llow-up) FINDINGS: The liver demonstrates homogeneous echotexture without intrahepatic biliary dilatation. P ortal venous flow is normal in direction. The gallbladder is mildly distended and contains a small a mount of sludge and/or stones, not well characterized due to shadowing from technique. There is no f rank gallbladder wall thickening or pericholecystic fluid. Common duct measures approximately 0.5 cm . Pancreas not well seen due to shadowing from bowel gas. IMPRESSION: 1. Nonvisualization of the pancreas due to bowel gas. 2. Nonspecific gallbladder distension with sludge and/or stones. No moiz gallbladder wall thickeni ng.
[2022-05-07 09:28] LABS: ABG O2 HGB 91.2 % (95-100); ABG PH 7.41 (7.35-7.45); BEecf 2.7 (-2.0-3.0); COHb 1.6 (0.5-1.5); HCO3 27.3 (21-28); MetHb 0.7 (0-1.5); TCO2 28.6 (19-24); sO2 92.6 % (94-98); tHb 12.6 g/dl (11.7-17.4)
--- NOTE | 2022-05-07 11:13 | CT ---
EXAM: CT abdomen pelvis with contrast HISTORY: Abdominal pain with gallstone pancreatitis suspected COMPARISON: Ultrasound abdomen 05/07/[address] abdomen pelvis 05/06/2022 TECHNIQUE: Serial axial images of the abdomen pelvis were performed after 50 mL is of Omnipaque IV c ontrast was administered. These were obtained from the lung bases through the inferior pelvis. FINDINGS: The lung bases demonstrate emphysema. The liver is unremarkable. The gallbladder is large and distended with layering sludge. The adrenal glands are normal. The right kidney demonstrates three exophytic low attenuation cysts the largest measuring 5.6 cm. Additional punctate calcifications demonstrate no obstructive uropathy. The left k idney demonstrates multiple low attenuation lesions the largest exophytic lesion measuring 7.5 cm. T here is a punctate 0.3 cm stone in the inferior pole of the left kidney. The spleen is unremarkable. Pancreas is normal. Stomach is minimally distended. Small bowel in the abdomen pelvis demonstrates no obstruction or abn ormality. The colon demonstrates diverticulosis without diverticulitis. There is no free air, free fluid or lymphadenopathy. There is a fat-containing left inguinal hernia. Pelvic soft tissues are u nremarkable. The osseous structures demonstrate degenerative disease with scattered posterior fusion hardware. IMPRESSION: 1. No evidence of gallstones or pancreatitis. 2. Bilateral renal cysts and nonobstructing stones. 3. Diverticulosis without diverticulitis. 4. Small fat-containing left inguinal hernia. All CT scans are performed using dose optimization techniques as appropriate to the performed exam an d include at least one of the following: Automated exposure control, adjustment of the mA and/or kV according t o size, and the use of iterative reconstruction technique.
[2022-05-07] MEDS ORDERED: ZOFRAN 4 MG/2 ML IVP PRN (12:59)
[2022-05-07] MEDS: SODIUM CHLORIDE 1,000 ML IV SCH (14:26)
[2022-05-07] MEDS: LOVENOX SUBCUT SCH (14:26)
[2022-05-07 14:32] VITALS: BMI 28.6
[2022-05-07] MEDS ORDERED: CATAPRES PO PRN (14:54)
[2022-05-07] MEDS: MORPHINE SULFATE TAB PO SCH ×2 (15:47→21:32)
[2022-05-07] MEDS: ZOSYN 3.375 GM 3.375 GM in SODIUM CHLORIDE 50 ML IV SCH (17:47)
[2022-05-07] MEDS ORDERED: ZOSYN 3.375 GM 3.375 GM in SODIUM CHLORIDE 100ML 100 ML IV SCH (18:00)
[2022-05-07] MEDS ORDERED: REQUIP PO SCH (21:00)
[2022-05-08] MEDS: ZOSYN 3.375 GM 3.375 GM in SODIUM CHLORIDE 50 ML IV SCH ×2 (00:43→05:43)
[2022-05-08] MEDS: SODIUM CHLORIDE 1,000 ML IV SCH (04:41)
[2022-05-08 05:48] LABS: BASOPHILS % (AUTO) 0.1 % (0.0-3.0); EOSINOPHILS % (AUTO) 0.3 % (0.0-7.0); HEMATOCRIT 37.2 % (42.0-52.0); HEMOGLOBIN 12.7 g/dl (14.0-18.0); IMMATURE GRANULOCYTE % (AUTO) 0.3 % (0.0-5.0); LYMPHOCYTES # (AUTO) 0.5 K/uL (0.60-3.4); LYMPHOCYTES % (AUTO) 6.9 (10.0-50.0); MEAN CORPUSCULAR HGB CONC 34.1 (31.8-35.4); MEAN CORPUSCULAR VOLUME 87.9 fl (80.0-94.0); MONOCYTES # (AUTO) 0.5 K/uL (0.4-2.0); MONOCYTES % (AUTO) 6.3 (0-10); NEUTROPHILS # (AUTO) 6.7 K/ul (2.0-6.9); NEUTROPHILS % (AUTO) 86.1 % (42.2-75.2); PLATELET COUNT 146 10^3/uL (140-440); RDW COEFFICIENT OF VARIATION 13.5 % (11.6-14.8); RED BLOOD COUNT 4.23 10^6/ul (4.70-6.10); WHITE BLOOD COUNT 7.77 K/ul (4.2-10.2)
[2022-05-08 05:57] LABS: ALANINE AMINOTRANSFERASE 69.3 U/L (0-50); ALBUMIN 3.38 g/dL (3.5-5.0); ALKALINE PHOSPHATASE 177.2 U/L (56-119); ASPARTATE AMINO TRANSFERASE 67.6 U/L (17-59); BILIRUBIN,TOTAL 0.8 mg/dL (0.2-1.3); BLOOD UREA NITROGEN 12.4 mg/dL (9-20); CALCIUM 8.13 mg/dL (8.4-10.2); CARBON DIOXIDE 27.1 mmol/L (22-30.0); CREATININE 0.64 mg/dL (0.60-1.10); GLUCOSE 97.6 mg/dL (74-106); POTASSIUM 3.45 mmol/L (3.5-5.1); SODIUM 137.2 mmol/L (134.5-145); TOTAL PROTEIN 6.43 g/dL (6.3-8.2)
[2022-05-08] MEDS ORDERED: ASPIRIN EC PO SCH (08:30)
--- NOTE | 2022-05-08 08:52 | PCM.PROG ---
Date Seen by Provider: 05/08/22 Time Seen by Provider: 08:48 Subjective: Patient denies abdominal pain, nausea or emesis. He is tolerating solid food. Patient had a bowel movement this morning. Objective: Vitals: T=97.6 F, P=67, R=17, DN=010/82, SPO2=97 Patient is sitting up and eating breakfast. He is in good spirits. Alert and in NAD. HEENT: []Oral mucosa moist. Neck: [] Lungs: [] Clear. BS equal. CVS: [] Abdomen: []Soft, nontender. Extremities: [] Neurological: [] Skin: [] Lab/Tests/Diagnostic Imaging: [] (1) Gallstones: Status: Acute Code(s): K80.20 - Calculus of gallbladder without cholecystitis without obstruction SNOMED Code(s): 361552065 (2) Pancreatitis: Status: Acute Code(s): K85.90 - Acute pancreatitis without necrosis or infection, unspecified SNOMED Code(s): 56418679 (3) COVID-19 virus infection: Status: Acute Code(s): U07.1 - COVID-19 SNOMED Code(s): 135625323 Assessment: Pancreatitis has resolved and patient is tolerating PO intake. He is asym ptomatic with regard to his Covid. Plan: Discharge patient to home. He will be sent home on Paxlovid.
[2022-05-08] MEDS ORDERED: PRAVACHOL PO SCH (09:00)
[2022-05-08] MEDS ORDERED: BENICAR PO SCH (09:00)
[2022-05-08] MEDS ORDERED: NORVASC PO SCH (09:00)
[2022-05-08] MEDS ORDERED: AMLODIPINE OLMESARTAN PO SCH (09:00)
--- NOTE | 2022-05-08 09:08 | PCM.DC ---
Final Diagnosis: Physical Exam Appearance: Well-appearing Ill-appearing: None Pain Distress: None Eyes: Not Examined ENT: Oropharynx normal Neck: Supple Respiratory: Airway patent, Breath sounds clear and Breath sounds equal Cardiovascular: RRR, No rub and No murmur GI/: Soft, Nontender and Bowel sounds normal Musculoskeletal: Normal strength and No edema Skin: Warm, Dry and Normal color Neurological: Alert and Oriented Psychiatric: Affect appropriate and Mood appropriate (1) Gallstones: Status: Acute Code(s): K80.20 - Calculus of gallbladder without cholecystitis without obstruction SNOMED Code(s): 913536076 (2) Pancreatitis: Status: Acute Code(s): K85.90 - Acute pancreatitis without necrosis or infection, unspecified SNOMED Code(s): 27306760 (3) COVID-19 virus infection: Status: Acute Code(s): U07.1 - COVID-19 SNOMED Code(s): 789633806 Reason for Hospitalization: Patient admitted with gallstone pancreatitis. Upon admission, he was found to have Covid 19 infection; patient was asymptomatic with regard to this. Prognosis/Condition at Discharge: Condition at discharge was good. Medications at Discharge: Ambulatory Orders Medication Instructions Recorded aspirin 81 mg tablet,delayed 81 mg PO DAILY 10/11/14 release omeprazole 20 mg capsule,delayed 20 mg PO DAILY 10/11/14 release morphine 15 mg immediate release 15 mg PO TID 05/06/22 tablet ondansetron HCl 4 mg tablet 4 mg PO Q8H PRN #20 tab 05/06/22 ropinirole 1 mg tablet 1 mg PO BEDTIME 05/06/22 amlodipine 5 mg-olmesartan 20 mg 1 tab PO DAILY 05/07/22 tablet (Annie) pravastatin 20 mg tablet 20 mg PO DAILY 05/07/22 Education Provided to Patient and Family: Pancreatitis. Covid. Follow-ups: Follow up with Dr Deras within one week. Discharge Disposition: Home Hospital Course: Patient received IV fluids, analgesics and gut rest until his pancreatitis had resolved. He was then placed on a clear liquid diet which was advanced to a low fat diet. He tolerated this well. Patient remained asymptomatic from his Covid. Plan: Patient was discharged to home in good condition. He will be discharged with a prescription for paxlovid.
[2022-05-08] MEDS: MORPHINE SULFATE TAB PO SCH (09:22)
[2022-05-08] MEDS: LOVENOX SUBCUT SCH (09:23)
[2022-05-08 10:13] VITALS: BP 152/82; TEMP 97.3
== END 2022-05-08 11:53 | disposition home or self-care (01) ==
LOC: SCU 10:18 → ED 10:18 → SCU 05-07 14:16
PROVIDERS: ADMIT Emergency Medicine; ATTEND Surgery
DX: K85.90 Acute pancreatitis without necrosis or infection, unspecified; K80.20 Calculus of gallbladder without cholecystitis without obstruction; Z79.82 Long term (current) use of aspirin; Z79.899 Other long term (current) drug therapy; U07.1 COVID-19; F17.290 Nicotine dependence, other tobacco product, uncomplicated; Z51.81 Encounter for therapeutic drug level monitoring